=== PATIENT | female | born 1955 | race Caucasian/White ===

== ENCOUNTER 2019-09-30 18:41 | Observation (INO) | payer MEDICARE, OTHER ==
--- NOTE | 2019-09-30 19:12 | ED ---
ENT HPI - General Chief complaint: ENT Stated complaint: Nosebleed Time Seen by Provider: 09/30/19 18:49 Source: patient, EMS Mode of arrival: EMS Limitations: no limitations - History of Present Illness Initial comments: Patient is 64-year-old female presenting to emergency Department with a chief complaint of a nosebleed. Patient developed anterior epistaxis that was not able to resolve and went to the ED where she had a Rhino Rocket placed. Patient states she went today for removal of the epistaxis continued. The ED physician transfer the patient to [facility]. Patient states the bleeding is not resolved but she does have left-sided facial droopiness. Patient doesn't an appointment to see Dr. Dwyer tomorrow morning. Patient denies any headaches, one-sided weakness or paresthesias. Patient is currently on antiplatelet therapy. - Related Data Home Medications Medication Instructions Recorded Confirmed Carvedilol [Coreg] 3.125 mg PO BID 09/20/16 09/30/19 Cephalexin [Keflex] 500 mg PO DAILY 09/20/16 09/30/19 Isosorbide Mononitrate [Isosorbide 30 mg PO DAILY 09/20/16 09/30/19 Mononitrate ER] Nitroglycerin Sl Tabs [Nitrostat] 0.4 mg SUBLINGUAL Q5M PRN 09/20/16 09/30/19 Omeprazole 20 mg PO HS 09/20/16 09/30/19 Prasugrel [Effient] 10 mg PO DAILY 09/20/16 09/30/19 Simvastatin [Zocor] 20 mg PO HS 09/20/16 09/30/19 Solifenacin Succinate [Vesicare] 5 mg PO HS 09/20/16 09/30/19 metFORMIN HCL [Glucophage] 500 mg PO BID 09/20/16 09/30/19 Amoxicillin 500 mg PO TID 09/30/19 09/30/19 Aspirin EC [Ecotrin Low Dose] 162 mg PO HS 09/30/19 09/30/19 Cranberry Fruit Extract [Cranberry] 200 mg PO DAILY 09/30/19 09/30/19 Docusate [Colace] 100 mg PO DAILY 09/30/19 09/30/19 FLUoxetine HCL 40 mg PO DAILY 09/30/19 09/30/19 Midodrine [ProAmatine] 5 mg PO BID 09/30/19 09/30/19 guaiFENesin [Mucinex] 600 mg PO BID 09/30/19 09/30/19 sitaGLIPtin PHOSPHATE [Januvia] 50 mg PO DAILY 09/30/19 09/30/19 Allergies Allergy/AdvReac Type Severity Reaction Status Date / Time clindamycin Allergy Dyspnea Verified 09/30/19 20:48 Review of Systems ROS Statement: Those systems with pertinent positive or pertinent negative responses have been documented in the HPI. ROS Other: All systems not noted in ROS Statement are negative. Past Medical History Past Medical History: Chest Pain / Angina, Diabetes Mellitus, Hyperlipidemia, Hypertension, Myocardial Infarction ([place]), Thyroid Disorder Additional Past Medical History / Comment(s): autonomic dysfunction, neuropathy of head, orthostatic hypotension, IBS Last Myocardial Infarction Date:: 2015 History of Any Multi-Drug Resistant Organisms: None Reported Past Surgical History: Breast Surgery, Section, Cholecystectomy, Heart Catheterization With Stent, Hysterectomy, Tonsillectomy, Tubal Ligation Additional Past Surgical History / Comment(s): pannilectomy, breast biopsy, cataract removed bilateral Past Anesthesia/Blood Transfusion Reactions: No Reported Reaction Date of Last Stent Placement:: 2015 Past Psychological History: Anxiety, Depression Smoking Status: Former smoker Past Alcohol Use History: None Reported Past Drug Use History: None Reported - Past Family History Mother Family Medical History: Thyroid Disorder General Exam Limitations: no limitations General appearance: alert, in no apparent distress Head exam: Present: atraumatic, normocephalic, normal inspection Eye exam: Present: normal appearance, PERRL, EOMI Pupils: Present: normal accommodation ENT exam: Present: normal exam, normal oropharynx (Mother residual blood in the posterior pharynx.), mucous membranes moist, TM's normal bilaterally, normal external ear exam, other (Left-sided single lumen Rhino Rocket. No active bleeding at this time.) Neck exam: Present: normal inspection, full ROM Respiratory exam: Present: normal lung sounds bilaterally Cardiovascular Exam: Present: regular rate, normal rhythm, normal heart sounds Extremities exam: Present: normal inspection, full ROM Back exam: Present: normal inspection, full ROM Neurological exam: Present: alert, oriented X3, CN II-XII intact, normal gait, reflexes normal Psychiatric exam: Present: normal affect, normal mood Skin exam: Present: warm, dry, intact, normal color Course Vital Signs 09/30/19 09/30/19 18:43 19:39 Temperature 97.9 F Pulse Rate 95 86 Respiratory 18 18 Rate Blood Pressure 152/90 136/80 O2 Sat by Pulse 96 97 Oximetry Medical Decision Making - Medical Decision Making Patient is-year-old female presenting to the emergency department with a chief complaint of nose bleed. Patient was transferred [facility] ED from [facility] to [facility]. Dr. García spoke with Dr. Dwyer who will admit the patient for medical management. On exam patient does have some residual blood in the posterior pharynx. No active bleeding at this time. Patient is resting comfortably and has no complaints at this time. She has a single lumen Rhino Rocket in the left nostril. No FND. Admitting physician is . [facility] on consult. ENT on consult. - Lab Data Lab Results 09/30/19 Range/Units 20:36 POC Glucose (mg/dL) 278 H (75-99) mg/dL POC Glu Sld Educational Aide ID Mary Mayer Disposition Clinical Impression: Epistaxis Disposition: ADMITTED IP TO THIS HOSP Condition: Stable Additional Instructions: Patient will be admitted Is patient prescribed a controlled substance at d/c from ED?: No Referrals: Nonstaff,Physician [Primary Care Provider] - 1-2 days Time of Disposition: 21:05
[2019-09-30] MEDS ORDERED: NALOXONE 0.4 MG/ML 1 ML VIAL IV PRN (20:53)
[2019-09-30] MEDS ORDERED: ONDANSETRON 4 MG/2 ML VIAL IVP PRN (20:53)
[2019-09-30] MEDS ORDERED: ACETAMINOPHEN TAB 325 MG TAB PO PRN (20:53)
[2019-09-30] MEDS ORDERED: MORPHINE SULFATE 4 MG/ML SYRINGE IV PRN (20:53)
[2019-09-30] MEDS ORDERED: LORazepam 2 MG/ML INJ IV PRN (20:53)
[2019-09-30] MEDS ORDERED: HYDROmorphone 0.5 MG/0.5 ML SYRINGE IVP PRN (20:53)
[2019-09-30 20:56] LABS: Glucose,Whole Blood 278 mg/dL (75-99)
[2019-09-30 21:53] LABS: Anisocytosis Slight; Basophils % (A) 0 %; Eosinophils % (A) 0 %; HCT 35.9 % (34.0-46.0); HGB 11.6 gm/dL (11.4-16.0); Lymphocytes % (A) 6 %; MCH 29.3 pg (25.0-35.0); MCHC 32.3 g/dL (31.0-37.0); MCV 90.7 fL (80.0-100.0); Mean Platelet Volume 7.6; Monocytes # (A) 0.1 k/uL (0-1.0); Monocytes % (A) 1 %; Neutrophils % (A) 93 %; Platelet Count 267 k/uL (150-450); RBC 3.96 m/uL (3.80-5.40); RDW 17.6 % (11.5-15.5); WBC 17.3 k/uL (3.8-10.6)
[2019-09-30 21:59] LABS: ALT 28 U/L (4-34); AST 47 U/L (14-36); African American GFR (CKD) >90 (>60 ml/min/1.73 sqM); Albumin 4.4 g/dL (3.5-5.0); Alkaline Phosphatase 67 U/L (38-126); Anion Gap 14 mmol/L; Blood Urea Nitrogen 11 mg/dL (7-17); Calcium 9.5 mg/dL (8.4-10.2); Carbon Dioxide 20 mmol/L (22-30); Chloride 100 mmol/L (98-107); Glucose 264 mg/dL (74-99); Non-African American GFR(CKD) >90 (>60 ml/min/1.73 sqM); Sodium 134 mmol/L (137-145); Total Bilirubin 0.8 mg/dL (0.2-1.3); Total Protein 8.3 g/dL (6.3-8.2)
[2019-09-30 22:03] LABS: Potassium 5.5 mmol/L (3.5-5.1)
[2019-09-30 22:06] LABS: INR 0.9 (<1.2); Prothrombin Time 9.9 sec (9.0-12.0)
[2019-09-30 22:32] LABS: Partial Thromboplastin Time 21.1 sec (22.0-30.0)
[2019-10-01] MEDS ORDERED: NITROGLYCERIN SL TABS 0.4 MG TAB SUBLINGUAL PRN (00:01)
[2019-10-01] MEDS ORDERED: TROSPIUM CHLORIDE 20 MG TABLET PO SCH (00:30)
--- NOTE | 2019-10-01 01:09 | P.HPIM ---
History of Present Illness H&P Date: 09/30/19 Chief Complaint: nose bleed I was wearing N95 mask, face shield, and head cover. i maintained 6 feet distance with the patient who verbalized understanding about these precautionary measures. except for during my physical exam where i had to be close to the patient. This is 64-year-old female with coronary artery disease status post stents, diabetes mellitus on oral hypoglycemics well-controlled, hypertension controlled with medications. Patient comes in as a transfer for [facility] due to nosebleed patient reports frequent episodes of nose bleeding since August. Today she was going back to the hospital to remove her nasal packing however once it was removed she started bleeding again she was repacked with a Rhino Rocket's and was transferred to our facility for evaluation by ENT. Patient reports significant frequent bleeding since August to the point where her hemoglobin dropped to 8 required iron infusion she is not sure if she has received blood her hemoglobin at our facility was 11.6 the most recent hemogl obin that she had for a few days ago was 12 per her report. Currently patient denies any active bleeding into her throat. She denies any bleeding disorders however she recalls history of similar nosebleed about once 2 years ago. She denies any trauma to the nose denies any injuries. 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 ENT was notified recommended to leave the Rhino Rocket packing and patient will be evaluated in the morning close monitoring of her hemoglobin. Patient has been on antibiotics with amoxicillin. She otherwise denies any fevers or chills. Patient does report that she was having some left facial pain after packing over the weekend and then today she developed facial droop over the left side and inability to completely close her eyes and abscess of wrinkles over her left forehead. She recognizes the symptoms as Bajwa's palsy as her had it re cently. She denies otherwise any focal neuro deficits other than that. Denies any headache. She was given a dose of steroid prednisone at [facility] however she reports that she has not tolerated it in the past and refuses to take any more prednisone here. Upon further review of systems patient reported that she has lost sense of smell and taste over the past few days she thought this could be related to the nasal packing. Due to the current pandemic of Covid and that these complaints could be possible early symptoms. Covid will be taken into consideration. Patient otherwise denies any coughing chest pain or shortness of breath denies any fevers or chills denies any nausea or vomiting denies any diarrhea denies any muscle aches. She denies any contact with known Covid patient's. Patient is currently and oncology floor will be transferred to medical floor for close monitoring due to concerns regarding Covid Review of Systems Pertinent positives as noted in HPI. All other systems were reviewed and are negative Past Medical History Past Medical History: Chest Pain / Angina, Diabetes Mellitus, Hyperlipidemia, Hypertension, Myocardial Infarction ([place]), Thyroid Disorder Additional Past Medical History / Comment(s): autonomic dysfunction, neuropathy of head, orthostatic hypotension, IBS, [place] X3 Last Myocardial Infarction Date:: 2015 History of Any Multi-Drug Resistant Organisms: None Reported Past Surgical History: Breast Surgery, Section, Cholecystectomy, Heart Catheterization With Stent, Hysterectomy, Tonsillectomy, Tubal Ligation Additional Past Surgical History / Comment(s): pannilectomy, breast biopsy, cataract removed bilateral Past Anesthesia/Blood Transfusion Reactions: No Reported Reaction Date of Last Stent Placement:: 2015 Past Psychological History: Anxiety, Depression Additional Psychological History / Comment(s): Lives in own home in [place]. No stairs. Two cats. Patient does not have any assistive devices. Smoking Status: Former smoker Past Alcohol Use History: None Reported Past Drug Use History: None Reported - Past Family History Mother Family Medical History: Cancer, Diabetes Mellitus, Thyroid Disorder Additional Family Medical History / Comment(s): Kidney, bladder, thyroid cancer and heart disease, type 1 diabetic,issues with blood Medications and Allergies Home Medications Medication Instructions Recorded Confirmed Type Carvedilol [Coreg] 3.125 mg PO BID 09/20/16 09/30/19 History Cephalexin [Keflex] 500 mg PO DAILY 09/20/16 09/30/19 History Isosorbide Mononitrate [Isosorbide 30 mg PO DAILY 09/20/16 09/30/19 History Mononitrate ER] Nitroglycerin Sl Tabs [Nitrostat] 0.4 mg SUBLINGUAL Q5M PRN 09/20/16 09/30/19 History Omeprazole 20 mg PO HS 09/20/16 09/30/19 History Prasugrel [Effient] 10 mg PO DAILY 09/20/16 09/30/19 History Simvastatin [Zocor] 20 mg PO HS 09/20/16 09/30/19 History Solifenacin Succinate [Vesicare] 5 mg PO HS 09/20/16 09/30/19 History metFORMIN HCL [Glucophage] 500 mg PO BID 09/20/16 09/30/19 History Amoxicillin 500 mg PO TID 09/30/19 09/30/19 History Aspirin EC [Ecotrin Low Dose] 162 mg PO HS 09/30/19 09/30/19 History Cranberry Fruit Extract [Cranberry] 200 mg PO DAILY 09/30/19 09/30/19 History Docusate [Colace] 100 mg PO DAILY 09/30/19 09/30/19 History FLUoxetine HCL 40 mg PO DAILY 09/30/19 09/30/19 History Midodrine [ProAmatine] 5 mg PO BID 09/30/19 09/30/19 History guaiFENesin [Mucinex] 600 mg PO BID 09/30/19 09/30/19 History sitaGLIPtin PHOSPHATE [Januvia] 50 mg PO DAILY 09/30/19 09/30/19 History Allergies Allergy/AdvReac Type Severity Reaction Status Date / Time clindamycin Allergy Dyspnea Verified 09/30/19 20:48 Physical Exam Vitals: Vital Signs Temp Pulse Pulse Resp BP BP Pulse Ox 09/30/19 23:52 97.9 F 108 H 15 156/85 94 L 09/30/19 22:26 98.3 F 103 H 18 147/66 95 09/30/19 22:10 97.9 F 86 18 137/80 97 09/30/19 19:39 86 18 136/80 97 09/30/19 18:43 97.9 F 95 18 152/90 96 Intake and Output 09/30/19 09/30/19 10/01/19 14:59 22:59 06:59 Other: Weight 88.5 kg Constitutional: No acute distress, conversant, pleasant Eyes: Anicteric sclerae, moist conjunctiva, inability to close the left eye completely Pupils equal round reactive to light ENMT: NC/AT, left nostril packing Oropharynx clear, no erythema, no exudates, posterior nasopharyngeal streaking with blood Neck: Supple, FROM, no masses, or JVD No carotid bruits No thyromegaly Lungs: Clear to auscultation Clear to percussion Normal respiratory effort, no accessory muscle use Cardiovascular: Heart regular in rate and rhythm, No murmurs, gallops, or rubs No peripheral edema Abdominal: Soft Nontender, no guarding, rebound or rigidity Abdomen moving with respiration Normoactive bowel sounds No hepatomegaly, No splenomegaly No palpable mass No abdominal wall hernia noted Skin: Normal temperature, tone, texture, turgor No induration No subcutaneous nodules No rash, lesions No ulcers Extremities: No digital cyanosis No clubbing Pedal pulses intact and symmetrical Radial pulses intact and symmetrical No calf tenderness Psychiatric: Alert and oriented to person, place and time Appropriate affect fair judgement Neuro Muscles Strength 5/5 in all 4 extremities Sensation to light touch grossly present throughout Cranial nerves II-XII grossly intact No focal sensory deficits Lymphatics: no palpable cervical or supraclavicular , or inguinal lymph nodes Results CBC & Chem 7: 09/30/19 21:00 09/30/19 21:00 Labs: Abnormal Lab Results - Last 24 Hours (Table) 09/30/19 09/30/19 09/30/19 Range/Units 20:36 21:00 21:00 WBC 17.3 H (3.8-10.6) k/uL RDW 17.6 H (11.5-15.5) % Neutrophils # 16.0 H (1.3-7.7) k/uL APTT 21.1 L (22.0-30.0) sec Sodium (137-145) mmol/L Potassium (3.5-5.1) mmol/L Carbon Dioxide (22-30) mmol/L Creatinine (0.52-1.04) mg/dL Glucose (74-99) mg/dL POC Glucose (mg/dL) 278 H (75-99) mg/dL AST (14-36) U/L Total Protein (6.3-8.2) g/dL 09/30/19 Range/Units 21:00 WBC (3.8-10.6) k/uL RDW (11.5-15.5) % Neutrophils # (1.3-7.7) k/uL APTT (22.0-30.0) sec Sodium 134 L (137-145) mmol/L Potassium 5.5 H (3.5-5.1) mmol/L Carbon Dioxide 20 L (22-30) mmol/L Creatinine 0.48 L (0.52-1.04) mg/dL Glucose 264 H (74-99) mg/dL POC Glucose (mg/dL) (75-99) mg/dL AST 47 H (14-36) U/L Total Protein 8.3 H (6.3-8.2) g/dL Thrombosis Risk Factor Assmnt - Choose All That Apply Each Factor Represents 1 point: Obesity (BMI >25) Each Risk Factor Represents 2 Points: Age 61-74 years Other congenital or acquired thrombophilia - If yes, enter type in comment: No Thrombosis Risk Factor Assessment Total Risk Factor Score: 3 Thrombosis Risk Factor Assessment Level: Moderate Risk Assessment and Plan Assessment: 64-year-old female with hypertension well-controlled, diabetes mellitus A1c 6.3 well-controlled with oral hypoglycemics, CAD status post stents 5 years ago since then she's been on Effient and aspirin. Patient transferred from [facility] discharge facility for ENT evaluation due to recurrent significant nasal bleed. Patient required iron infusion last week which brought her hemoglobin up from 8-->12 patient is not sure if she has received blood transfusion Patient reported three-day history of loss of smell and taste sensation due to the current pandemic of Covid patient will be transferred from her current oncology floor to regular medical floor for monitoring and isolation. Patient will be tested for Covid and influenza Anticipated length of stay less than 2 midnights Plan: epistaxis Mild anemia secondary to nasal bleed Suspected Covera due to reports of loss of smell and taste sensation [place] palsy Hypertension Diabetes mellitus well controlled with A1c 6.3 CAD status post stents Plan Nasal packing with Rhino rocket Prophylaxis with amoxicillin Monitor hemoglobin Hold aspirin and effient (last stent 5 years ago) Patient refuses to take prednisone due to intolerance in the past she received 1 dose at [facility] Continue with valacyclovir thousand milligrams 3 times a day for bells palsy Contact and droplet precautions Covera testing Influenza testing Check chest x-ray Supplemental oxygen target dose at more than 92% Insulin sliding scale hold oral hypoglycemic agents CODE STATUS:*Full code DVT prophylaxis: Mechanical secondary to nasal bleed Discussed with: Patient, ER, RN Anticipated length of stay less than [address]: Home A total of 60 minutes was spent on the care of this complex patient more than 50% of the time was spent in counseling and care coordination.
[2019-10-01] MEDS: valACYclovir HCL 1,000 MG TABLET PO SCH ×2 (01:27→08:05)
[2019-10-01] MEDS: CARVEDILOL 3.125 MG TAB PO SCH ×2 (01:27→08:05)
[2019-10-01 04:05] VITALS: TEMP 98.2
[2019-10-01 05:28] LABS: Anisocytosis Slight; Basophils % (A) 0 %; Eosinophils % (A) 0 %; HCT 34.4 % (34.0-46.0); Hypochromasia Slight; Lymphocytes # (A) 2.3 k/uL (1.0-4.8); Lymphocytes % (A) 14 %; MCH 29.6 pg (25.0-35.0); MCHC 31.9 g/dL (31.0-37.0); MCV 92.8 fL (80.0-100.0); Mean Platelet Volume 7.4; Monocytes # (A) 0.9 k/uL (0-1.0); Monocytes % (A) 6 %; Neutrophils % (A) 78 %; Platelet Count 261 k/uL (150-450); RBC 3.71 m/uL (3.80-5.40); RDW 16.9 % (11.5-15.5); WBC 16.6 k/uL (3.8-10.6)
--- NOTE | 2019-10-01 07:09 | XR ---
EXAMINATION TYPE: XR chest 2V DATE OF EXAM: 10/01/2019 COMPARISON: 12/26/2009 HISTORY: 64-year-old female, with, cough, congestion, fever TECHNIQUE: PA and lateral views FINDINGS: The cardiomediastinal silhouette, aorta, and pulmonary vasculature are within normal limits. Mild int erstitial prominence as a chronic appearance. No consolidation or pleural effusion. IMPRESSION: Chronic appearing changes. No focal infiltrates seen.
[2019-10-01 07:14] LABS: Glucose,Whole Blood 174 mg/dL (75-99)
[2019-10-01] MEDS: INSULIN ASPART (NovoLOG) 100 UNIT/ML VIAL SQ SCH ×2 (08:04→12:07)
[2019-10-01 08:05] VITALS: PULSE 86; RESP 18
[2019-10-01 08:06] VITALS: BP 144/69
[2019-10-01] MEDS ORDERED: ISOSORBIDE MONONITRATE ER 30 MG TAB.ER.24H PO SCH (09:00)
[2019-10-01] MEDS ORDERED: MIDODRINE 5 MG TAB PO SCH (09:00)
[2019-10-01] MEDS ORDERED: AMOXICILLIN 500 MG CAP PO SCH (09:00)
[2019-10-01] MEDS ORDERED: FLUoxetine HCL 20 MG CAP PO SCH (09:00)
[2019-10-01] MEDS ORDERED: PRASUGREL 10 MG TAB PO SCH (09:00)
[2019-10-01] MEDS ORDERED: DOCUSATE 100 MG CAP PO SCH (09:00)
--- NOTE | 2019-10-01 11:28 | P.CRDCN ---
History of Present Illness History of present illness: HISTORY OF PRESENTING ILLNESS This is a pleasant 64-year-old female past medical history significant for coronary artery disease status post revascularization 3 most recently in 2 015, diabetes mellitus, hypertension, orthostatic changes maintained on midodrine and dyslipidemia. She follows in the office with a alterations workroom clerk in [place]. We have been asked to see in consultation for nose bleed on dual anti- platelet therapy. She states she has been struggling with this nose bleed for the last 5 days. She has nasal packing in place in the left nare. No active bleeding at this time. She denies chest pain, shortness of breath, dizziness or palpitations. DIAGNOSTICS No EKG obtained on admission. Chest xray negative for acute cardiopulmonary process, consolidation or pleural effusion. Laboratory reviewed, WBC 16.6, hemoglobin 11, platelets 261, sodium 134, potassium 5.5, creatinine 0.48, influenza A and B not detected, Covid 19 pending. Current cardiac medications include Coreg 3.125 mg twice a day, midodrine 5 mg twice a day, simvastatin 20 mg daily, aspirin 162 mg at bedtime, Imdur 30 mg daily and Effient 10 mg daily. REVIEW OF SYSTEMS At the time of my exam: CONSTITUTIONAL: Denies fever or chills. CARDIOVASCULAR: Denies chest pain, shortness of breath, orthopnea, PND or palpitations. RESPIRATORY: Denies cough. GASTROINTESTINAL: Denies abdominal pain, diarrhea, constipation, nausea or vomiting. MUSCULOSKELETAL: Denies myalgias. NEUROLOGIC: Denies numbness, tingling or weakness. ENDOCRINE: Denies fatigue, weight change, polydipsia or polyurina. GENITOURINARY: Denies burning, hematuria or urgency with micturation. HEMATOLOGIC: Denies history of anemia or bleeding. PHYSICAL EXAMINATION Blood pressure 144/69 heart rate 86 afebrile and maintaining oxygen saturation on room air. CONSTITUTIONAL: No apparent distress. HEENT: Head is normocephalic. Pupils are equal, round. Sclerae anicteric. Mucous membranes of the mouth are moist. No JVD. No carotid bruit. Nasal packing in place to the left nare. CHEST EXAMINATION: Lungs are clear to auscultation. No chest wall tenderness is noted on palpation or with deep breathing. HEART EXAMINATION: Regular rate and rhythm. S1, S2 heard. No murmurs, gallops or rub. ABDOMEN: Soft, nontender. Positive bowel sounds. EXTREMITIES: 2+ peripheral pulses, no lower extremity edema and no calf tenderness. NEUROLOGIC EXAMINATION: Patient is awake, alert and oriented x3. ASSESSMENT Epistaxix on effient and aspirin Coronary artery disease s/p revascularization, most recently in 2014. Hypertension Dyslipidemia Former nicotine dependence, quite 6 yrs ago Obesity, BMI 32 PLAN Recommend complete cessation of effient as her last PCI was in 2014 she is outside the 1-year window of use. Continue aspirin 81 mg daily only. Clinically stable from a cardiac perspective. Follow up with her primary alterations workroom clerk upon discharge. Thank you kindly for this consultation. Nurse Practitioner note has been reviewed, I agree with a documented findings and plan of care. Patient was seen and examined. Past Medical History Past Medical History: Chest Pain / Angina, Diabetes Mellitus, Hyperlipidemia, Hypertension, Myocardial Infarction ([place]), Thyroid Disorder Additional Past Medical History / Comment(s): autonomic dysfunction, neuropathy of head, orthostatic hypotension, IBS, [place] X3 Last Myocardial Infarction Date:: 2015 History of Any Multi-Drug Resistant Organisms: None Reported Past Surgical History: Breast Surgery, Section, Cholecystectomy, Heart Catheterization With Stent, Hysterectomy, Tonsillectomy, Tubal Ligation Additional Past Surgical History / Comment(s): pannilectomy, breast biopsy, cataract removed bilateral Past Anesthesia/Blood Transfusion Reactions: No Reported Reaction Date of Last Stent Placement:: 2015 Past Psychological History: Anxiety, Depression Additional Psychological History / Comment(s): Lives in own home in [place]. No stairs. Two cats. Patient does not have any assistive devices. Smoking Status: Former smoker Past Alcohol Use History: None Reported Past Drug Use History: None Reported - Past Family History Mother Family Medical History: Cancer, Diabetes Mellitus, Thyroid Disorder Additional Family Medical History / Comment(s): Kidney, bladder, thyroid cancer and heart disease, type 1 diabetic,issues with blood Medications and Allergies Home Medications Medication Instructions Recorded Confirmed Type Carvedilol [Coreg] 3.125 mg PO BID 09/20/16 09/30/19 History Isosorbide Mononitrate [Isosorbide 30 mg PO DAILY 09/20/16 09/30/19 History Mononitrate ER] Nitroglycerin Sl Tabs [Nitrostat] 0.4 mg SUBLINGUAL Q5M PRN 09/20/16 09/30/19 History Omeprazole 20 mg PO HS 09/20/16 09/30/19 History Prasugrel [Effient] 10 mg PO DAILY 09/20/16 09/30/19 History Simvastatin [Zocor] 20 mg PO HS 09/20/16 09/30/19 History Solifenacin Succinate [Vesicare] 5 mg PO HS 09/20/16 09/30/19 History metFORMIN HCL [Glucophage] 500 mg PO BID 09/20/16 09/30/19 History Amoxicillin 500 mg PO TID 09/30/19 09/30/19 History Aspirin EC [Ecotrin Low Dose] 162 mg PO HS 09/30/19 09/30/19 History Cranberry Fruit Extract [Cranberry] 200 mg PO DAILY 09/30/19 09/30/19 History Docusate [Colace] 100 mg PO DAILY 09/30/19 09/30/19 History FLUoxetine HCL 40 mg PO DAILY 09/30/19 09/30/19 History Midodrine [ProAmatine] 5 mg PO BID 09/30/19 09/30/19 History guaiFENesin [Mucinex] 600 mg PO BID 09/30/19 09/30/19 History sitaGLIPtin PHOSPHATE [Januvia] 50 mg PO DAILY 09/30/19 09/30/19 History Allergies Allergy/AdvReac Type Severity Reaction Status Date / Time clindamycin Allergy Dyspnea Verified 09/30/19 20:48 Physical Exam Vitals: Vital Signs Temp Pulse Pulse Resp BP BP Pulse Ox 10/01/19 07:00 98.2 F 86 18 144/69 98 10/01/19 03:00 98.2 F 92 14 120/79 93 L 09/30/19 23:52 97.9 F 108 H 15 156/85 94 L 09/30/19 22:26 98.3 F 103 H 18 147/66 95 09/30/19 22:10 97.9 F 86 18 137/80 97 09/30/19 19:39 86 18 136/80 97 09/30/19 18:43 97.9 F 95 18 152/90 96 Intake and Output 09/30/19 10/01/19 10/01/19 22:59 06:59 14:59 Other: Voiding Method Toilet Weight 88.5 kg Results 10/01/19 04:14 09/30/19 21:00 Cardiac Enzymes 09/30/19 Range/Units 21:00 AST 47 H (14-36) U/L Coagulation 09/30/19 Range/Units 21:00 PT 9.9 (9.0-12.0) sec APTT 21.1 L (22.0-30.0) sec CBC 09/30/19 10/01/19 Range/Units 21:00 04:14 WBC 17.3 H 16.6 H (3.8-10.6) k/uL RBC 3.96 3.71 L (3.80-5.40) m/uL Hgb 11.6 11.0 L (11.4-16.0) gm/dL Hct 35.9 34.4 (34.0-46.0) % Plt Count 267 261 (150-450) k/uL Comprehensive Metabolic Panel 09/30/19 Range/Units 21:00 Sodium 134 L (137-145) mmol/L Potassium 5.5 H (3.5-5.1) mmol/L Chloride 100 (98-107) mmol/L Carbon Dioxide 20 L (22-30) mmol/L BUN 11 (7-17) mg/dL Creatinine 0.48 L (0.52-1.04) mg/dL Glucose 264 H (74-99) mg/dL Calcium 9.5 (8.4-10.2) mg/dL AST 47 H (14-36) U/L ALT 28 (4-34) U/L Alkaline Phosphatase 67 (38-126) U/L Total Protein 8.3 H (6.3-8.2) g/dL Albumin 4.4 (3.5-5.0) g/dL Current Medications Generic Name Dose Route Start Last Admin Trade Name Freq PRN Reason Stop Dose Admin Acetaminophen 650 mg 09/30/19 20:53 Tylenol Tab PO Q6HR PRN Mild Pain or Fever > 100.5 Amoxicillin 500 mg 10/01/19 09:00 10/01/19 08:05 Amoxicillin PO 500 mg TID [facility] Administration Atorvastatin Calcium 10 mg 10/01/19 21:00 Lipitor PO HS [facility] Carvedilol 3.125 mg 10/01/19 00:30 10/01/19 08:05 Coreg PO 3.125 mg BID-W/MEALS [facility] Administration Docusate Sodium 100 mg 10/01/19 09:00 10/01/19 08:05 Colace PO 100 mg DAILY [facility] Administration Fluoxetine HCl 40 mg 10/01/19 09:00 10/01/19 08:05 Prozac PO 40 mg DAILY [facility] Administration Hydromorphone HCl 0.5 mg 09/30/19 20:53 Dilaudid IVP Q3HR PRN Moderate Pain Insulin Aspart 0 unit 10/01/19 07:30 10/01/19 08:04 Novolog SQ 4 unit ACHS [facility]E Administration Protocol Isosorbide Mononitrate 30 mg 10/01/19 09:00 10/01/19 08:05 Imdur PO 30 mg DAILY [facility] Administration Lorazepam 0.5 mg 09/30/19 20:53 10/01/19 03:05 Ativan IV 0.5 mg Q6HR PRN Administration Anxiety Midodrine 5 mg 10/01/19 09:00 10/01/19 08:05 Proamatine PO 5 mg BID@0900,1700 [facility] Administration Morphine Sulfate 4 mg 09/30/19 20:53 Morphine Sulfate (Inj) IV Q4HR PRN Severe Pain Naloxone HCl 0.2 mg 09/30/19 20:53 Narcan IV Q2M PRN Opioid Reversal Nitroglycerin 0.4 mg 10/01/19 00:01 Nitrostat SUBLINGUAL Q5M PRN Chest Pain Ondansetron HCl 4 mg 09/30/19 20:53 Zofran IVP Q8HR PRN Nausea And Vomiting Pantoprazole Sodium 40 mg 10/01/19 21:00 Protonix PO HS [facility] Trospium 20 mg 10/01/19 00:30 10/01/19 01:27 Sanctura PO 20 mg HS [facility]E Administration Valacyclovir HCl 1,000 mg 10/01/19 00:30 10/01/19 08:05 Valtrex PO 1,000 mg TID [facility] Administration Intake and Output 09/30/19 10/01/19 10/01/19 22:59 06:59 14:59 Other: Voiding Method Toilet Weight 88.5 kg 10/01/19 04:14 09/30/19 21:00
[2019-10-01] MEDS ORDERED: ASPIRIN 81 MG PO SCH (11:30)
[2019-10-01 11:59] LABS: Glucose,Whole Blood 179 mg/dL (75-99)
--- NOTE | 2019-10-01 12:05 | P.DS ---
Providers Date of admission: 09/30/19 20:51 Expected date of discharge: 10/01/19 Attending physician: Mart Clements MD Consults: 09/30/19 20:53 Consult Physician Stat Consulting Provider: Daniel Cain Consult Reason/Comments: Posterior epistaxis Do you want consulting provider notified?: Yes 10/01/19 00:04 Consult Physician Routine Consulting Provider: Ashok Pisano Consult Reason/Comments: Posterior epitaxis Do you want consulting provider notified?: Yes, Notify in am Primary care physician: Physician Nonstaff Hospital Course: Discharge diagnosis Epistaxis Mild acute blood loss anemia Low suspicion for Covid 19 Essential hypertension Type 2 diabetes CAD with stents Bajwa palsy ruled out Hospital course The patient is a 64-year-old female with a history of CAD with stenting 2014 , essential hypertension and type 2 diabetes that was admitted with epistaxis after being transferred here from [place] after having a left nasal Rhino Rocket placed due to epistaxis the patient gave a history of requiring iron infusions due to anemia secondary to her nosebleeds. The patient had complained of symptoms of Bajwa's palsy and was started empirically on steroids and antivirals these were subsequently discontinued after the patient was invalid by ENT and found to have low suspicion of Bajwa's palsy or CVA at this time. The patient was seen by cardiology and was discontinued off Effient at the patient had been outside the 1 year window for which it was indicated she was instructed to continued on aspirin and follow-up with ENT Dr. Cain in clinic on Sunday. Covid 19 had been sent to the lab and results are pending. The patient was discharged home and instructed to continue her amoxicillin for prophylaxis and to keep her left Rhino Rocket in place and to follow up with ENT on Sunday. This discharge process spoke approximately 35 minutes. Focused exam ENMT left Rhino Rocket in place, for further exam details please see ENT consultation Patient Condition at Discharge: Stable Plan - Discharge Summary Discharge Rx Participant: No New Discharge Prescriptions: New Aspirin 81 mg PO DAILY chew Continue Simvastatin [Zocor] 20 mg PO HS metFORMIN HCL [Glucophage] 500 mg PO BID Omeprazole 20 mg PO HS Isosorbide Mononitrate [Isosorbide Mononitrate ER] 30 mg PO DAILY Carvedilol [Coreg] 3.125 mg PO BID Solifenacin Succinate [Vesicare] 5 mg PO HS Nitroglycerin Sl Tabs [Nitrostat] 0.4 mg SUBLINGUAL Q5M PRN PRN Reason: Chest Pain Docusate [Colace] 100 mg PO DAILY Cranberry Fruit Extract [Cranberry] 200 mg PO DAILY sitaGLIPtin PHOSPHATE [Januvia] 50 mg PO DAILY Midodrine [ProAmatine] 5 mg PO BID guaiFENesin [Mucinex] 600 mg PO BID FLUoxetine HCL 40 mg PO DAILY Amoxicillin 500 mg PO TID Discontinued Cephalexin [Keflex] 500 mg PO DAILY Prasugrel [Effient] 10 mg PO DAILY Aspirin EC [Ecotrin Low Dose] 162 mg PO HS Discharge Medication List Carvedilol [Coreg] 3.125 mg PO BID 09/20/16 [History] Isosorbide Mononitrate [Isosorbide Mononitrate ER] 30 mg PO DAILY 09/20/16 [History] Nitroglycerin Sl Tabs [Nitrostat] 0.4 mg SUBLINGUAL Q5M PRN 09/20/16 [History] Omeprazole 20 mg PO HS 09/20/16 [History] Simvastatin [Zocor] 20 mg PO HS 09/20/16 [History] Solifenacin Succinate [Vesicare] 5 mg PO HS 09/20/16 [History] metFORMIN HCL [Glucophage] 500 mg PO BID 09/20/16 [History] Amoxicillin 500 mg PO TID 09/30/19 [History] Cranberry Fruit Extract [Cranberry] 200 mg PO DAILY 09/30/19 [History] Docusate [Colace] 100 mg PO DAILY 09/30/19 [History] FLUoxetine HCL 40 mg PO DAILY 09/30/19 [History] Midodrine [ProAmatine] 5 mg PO BID 09/30/19 [History] guaiFENesin [Mucinex] 600 mg PO BID 09/30/19 [History] sitaGLIPtin PHOSPHATE [Januvia] 50 mg PO DAILY 09/30/19 [History] Aspirin 81 mg PO DAILY chew 10/01/19 [Rx] Follow up Appointment(s)/Referral(s): Daniel Cain DO [Doctor of Osteopathic Medicine] - 10/06/19 12:45 pm Nonstaff,Physician [Primary Care Provider] - 1-2 Days Activity/Diet/Wound Care/Special Instructions: Patient will be admitted Discharge Disposition: HOME SELF-CARE
--- NOTE | 2019-10-01 12:28 | CONS ---
CONSULTATION DATE OF SERVICE: 10/01/2019 CHIEF COMPLAINT: Nose bleed. HISTORY OF PRESENT ILLNESS: This is a 64-year-old white female who has had recurring nosebleeds over the last month. She had a pretty brisk bleed on Sunday and had a nasal pack placed. She had an appointment to come in today at 10 am to have her pack removed, but she decided to go to the emergency room at [place] [facility] and they removed her pack last evening. She had a brisk bleed and they were unable to control the bleeding and was transferred down to [facility], Dr. Alexandre Parker was motion study technician, but they elected to call me for consultation and care of this patient. I did wear a 95 mask facial head covered during my examination and visit with the patient. The patient tells me that she has been on a blood thinner for over 5 years for a stent that was placed in 2014. She also has a diagnosis of Bajwa's palsy and because of her anosmia, she was tested for the krishnamurthy virus for suspected COVID-19, but the patient has a nasal pack in place. I understand that the emergency room here placed a nasal pack utilizing a rhino rocket and inflation and she currently has had no bleeding. She was seen by Cardiology today and they advised her to stop her blood thinner, which was for her stent placed in 2014 and felt that it was no longer needed. She did have anemia issue and is currently being evaluated by Medicine. She has left nasal packing and taping to the lip. She has good facial movement other than limited lip movement but that is from the tape on her lip. PAST MEDICAL HISTORY: Positive for heart disease, chest pain, angina, diabetes, hyperlipidemia, hypertension, thyroid dysfunction. PAST SURGICAL HISTORY: Positive for stent, panniculectomy, breast biopsy, cataract removal. SOCIAL HISTORY: Former smoker. Denies current smoking or alcohol consumption. FAMILY HISTORY: Positive for cancer, diabetes, thyroid disorder. CURRENT MEDICATIONS ARE: Coreg, Keflex, isosorbide dinitrate, nitroglycerin, omeprazole, Atrovent, Zocor, VESIcare, metformin, amoxicillin, aspirin, cranberry fruit extract, Colace, Mucinex, Januvia. ALLERGIES: To CLINDAMYCIN. REVIEW OF SYSTEMS: See H and P. PHYSICAL EXAMINATION: Vital signs are stable. Patient afebrile. HEAD: Normocephalic. Face is symmetric. There is tenderness of the left maxillary sinus. Nose shows a left nasal packing in place utilizing a rhino rocket. No bleeding is seen. The balloon is taped to the left upper lip, which is limited movement because of the taping. Forehead movement, rest of the facial movements normal. Ears are unremarkable. Mouth and throat and no oral lesions are seen. Neck is unremarkable. No bleeding is seen. Neck, no tumors or masses. Oral exam is unremarkable. IMPRESSION: Acute left-sided posterior epistaxis secondary to anticoagulant therapy. PLAN OF TREATMENT: This patient has no evidence of Bajwa's palsy. She has limited left upper lip movement because it is taped to the nasal balloon. She has no evidence of krishnamurthy virus. She has no fever. She has no coughing, shortness of breath, etc. Since she can stop her blood thinner, I think she is an excellent candidate to have the balloon removed on Sunday and I think the patient should do quite well once stopped from her blood thinner. I will be seeing the patient on Sunday for balloon removal. The patient is to call us if any problems arise in the interim. I anticipate she may be discharged today. They are awaiting the results of her krishnamurthy virus testing. This was discussed with Dr. Ybarra and the patient in detail and again I see no evidence of Bajwa's palsy. Her anosmia is from her nasal balloon and that was the reason for the krishnamurthy virus test in the first place. I guess she is not running a fever. She will stay on antibiotics until the pack has been removed/ Again she is to call if any problems arise in the interim. MMODL / IJN: [id number] /
[2019-10-01] MEDS ORDERED: ATORVASTATIN 10 MG TAB PO SCH (21:00)
[2019-10-01] MEDS ORDERED: PANTOPRAZOLE 40 MG TABLET PO SCH (21:00)
== END 2019-10-01 13:12 | disposition home or self-care (01) ==
LOC: EC 18:41 → 5NMEDONC 20:51 → 4SSUR 23:31
PROVIDERS: ADMIT Internal Medicine; ATTEND Internal Medicine
DX: R04.0 Epistaxis (principal); D62 Acute posthemorrhagic anemia; D72.829 Elevated white blood cell count, unspecified; E11.65 Type 2 diabetes mellitus with hyperglycemia; E66.9 Obesity, unspecified; E78.5 Hyperlipidemia, unspecified; F32.9 Major depressive disorder, single episode, unspecified; F41.9 Anxiety disorder, unspecified; I10 Essential (primary) hypertension; I25.10 Atherosclerotic heart disease of native coronary artery without angina pectoris; I25.2 Old myocardial infarction; T38.0X5A Adverse effect of glucocorticoids and synthetic analogues, initial encounter; Z68.32 Body mass index [BMI] 32.0-32.9, adult; Z79.02 Long term (current) use of antithrombotics/antiplatelets; Z79.82 Long term (current) use of aspirin; Z79.84 Long term (current) use of oral hypoglycemic drugs; Z79.899 Other long term (current) drug therapy; Z80.8 Family history of malignant neoplasm of other organs or systems; Z83.3 Family history of diabetes mellitus; Z87.891 Personal history of nicotine dependence; Z90.710 Acquired absence of both cervix and uterus; Z95.5 Presence of coronary angioplasty implant and graft; Z88.1 Allergy status to other antibiotic agents; E11.40 Type 2 diabetes mellitus with diabetic neuropathy, unspecified; G90.9 Disorder of the autonomic nervous system, unspecified; Z84.89 Family history of other specified conditions; Z98.49 Cataract extraction status, unspecified eye; Z11.59 Encounter for screening for other viral diseases
CPT/HCPCS: 96374; 99284; 36415; 80053; 85025 ×2; 85610; 85730; 87502; 71046; G0378 ×2; U0002; J2060

== ENCOUNTER 2023-04-13 11:26 | Emergency (ER) | payer MEDICARE ==
[2023-04-13] MEDS ORDERED: HYDROcodone/APAP 5-325MG 1 EACH TAB PO STA (12:26)
--- NOTE | 2023-04-13 12:29 | XR ---
EXAMINATION TYPE: XR Hip LT and AP Pelvis DATE OF EXAM: 04/13/2023 CLINICAL HISTORY: pain TECHNIQUE: Single view the pelvis is submitted. 2 views of the left hip are also submitted. FINDINGS: No evidence for fracture, dislocation or bony lesion. Joint spaces are well-preserved. S I joints appear symmetric. IMPRESSION: 1. No acute fracture or dislocation seen. ICD 10 NO FRACTURE, INITIAL EVALUATION
--- NOTE | 2023-04-13 13:57 | CT ---
EXAMINATION TYPE: CT hip LT wo con DATE OF EXAM: 04/13/2023 COMPARISON: None HISTORY: left hip pain CT DLP: 603.2 mGycm Automated exposure control for dose reduction was used. FINDINGS: There is a moderately displaced fracture of the greater trochanter of the left femur. There is no dislocation of hip joint no significant degenerative change within the hip joint. Visuali zed left hemipelvis is intact. Soft tissues are unremarkable. IMPRESSION: Mildly displaced fracture of the greater trochanter of the left hip.
--- NOTE | 2023-04-13 14:29 | ED ---
Fall HPI - General Chief Complaint: Fall Stated Complaint: HIP PAIN/FALL Time Seen by Provider: 04/13/23 11:37 Source: patient, EMS, RN notes reviewed Mode of arrival: EMS Limitations: no limitations - History of Present Illness Initial Comments: 68-year-old female sent emergency department with chief complaint of left hip pain. Patient states she had a trip and fall. Patient denies any head injury states child has left outer hip, leg pain. Denies back pain. - Related Data Home Medications Medication Instructions Recorded Confirmed Isosorbide Mononitrate [Isosorbide 30 mg PO DAILY 09/20/16 09/30/19 Mononitrate ER] Nitroglycerin Sl Tabs [Nitrostat] 0.4 mg SUBLINGUAL Q5M PRN 09/20/16 09/30/19 Omeprazole 20 mg PO HS 09/20/16 09/30/19 Simvastatin [Zocor] 20 mg PO HS 09/20/16 09/30/19 Solifenacin Succinate [Vesicare] 5 mg PO HS 09/20/16 09/30/19 carvediloL [Coreg] 3.125 mg PO BID 09/20/16 09/30/19 metFORMIN HCL [Glucophage] 500 mg PO BID 09/20/16 09/30/19 Amoxicillin 500 mg PO TID 09/30/19 09/30/19 Cranberry Fruit Extract [Cranberry] 200 mg PO DAILY 09/30/19 09/30/19 Docusate [Colace] 100 mg PO DAILY 09/30/19 09/30/19 FLUoxetine HCL 40 mg PO DAILY 09/30/19 09/30/19 Midodrine [ProAmatine] 5 mg PO BID 09/30/19 09/30/19 guaiFENesin [Mucinex] 600 mg PO BID 09/30/19 09/30/19 sitaGLIPtin PHOSPHATE [Januvia] 50 mg PO DAILY 09/30/19 09/30/19 Previous Rx's Medication Instructions Recorded Aspirin 81 mg PO DAILY chew 10/01/19 HYDROcodone/APAP 7.5-325MG [[place] 1 tab PO Q6HR PRN 3 Days #12 tab 04/13/23 7.5-325] Allergies Allergy/AdvReac Type Severity Reaction Status Date / Time clindamycin Allergy Dyspnea Verified 09/30/19 20:48 Sulfa (Sulfonamide AdvReac Unknown Verified 04/13/23 11:35 Antibiotics) Review of Systems ROS Statement: Those systems with pertinent positive or pertinent negative responses have been documented in the HPI. ROS Other: All systems not noted in ROS Statement are negative. Past Medical History Past Medical History: Chest Pain / Angina, Diabetes Mellitus, Hyperlipidemia, Hypertension, Myocardial Infarction (LA), Thyroid Disorder Additional Past Medical History / Comment(s): autonomic dysfunction, neuropathy of head, orthostatic hypotension, IBS, LA X3 Last Myocardial Infarction Date:: 2015 History of Any Multi-Drug Resistant Organisms: None Reported Past Surgical History: Breast Surgery, Section, Cholecystectomy, Heart Catheterization With Stent, Hysterectomy, Tonsillectomy, Tubal Ligation Additional Past Surgical History / Comment(s): pannilectomy, breast biopsy, cataract removed bilateral Past Anesthesia/Blood Transfusion Reactions: No Reported Reaction Date of Last Stent Placement:: 2015 Past Psychological History: Anxiety, Depression Smoking Status: Former smoker Past Alcohol Use History: Occasional Past Drug Use History: None Reported - Past Family History Mother Family Medical History: Cancer, Diabetes Mellitus, Thyroid Disorder Additional Family Medical History / Comment(s): Kidney, bladder, thyroid cancer and heart disease, type 1 diabetic,issues with blood General Exam Limitations: no limitations General appearance: alert, in no apparent distress Head exam: Present: atraumatic, normocephalic, normal inspection Eye exam: Present: normal appearance, PERRL, EOMI. Absent: scleral icterus, conjunctival injection, periorbital swelling Neck exam: Present: normal inspection, full ROM. Absent: tenderness, meningismus, lymphadenopathy Respiratory exam: Present: normal lung sounds bilaterally. Absent: respiratory distress, wheezes, rales, rhonchi, stridor Cardiovascular Exam: Present: regular rate, normal rhythm, normal heart sounds. Absent: systolic murmur, diastolic murmur, rubs, gallop, clicks GI/Abdominal exam: Present: soft, normal bowel sounds. Absent: distended, tenderness, guarding, rebound, rigid Extremities exam: Present: other (Tenderness to left hip, neurovascular intact, pain with logrolling.) Course Vital Signs 04/13/23 04/13/23 04/13/23 11:30 12:35 14:42 Temperature 98.1 F 98.4 F Pulse Rate 66 60 72 Respiratory 18 20 18 Rate Blood Pressure 125/72 137/68 136/77 O2 Sat by Pulse 97 97 97 Oximetry Medical Decision Making - Medical Decision Making Was pt. sent in by a medical professional or institution (VIOLA Mason, PSYCHOLOGICAL ANTHROPOLOGIST, urgent care, hospital, or long-term...) When possible be specific @ -No Did you speak to anyone other than the patient for history (EMS, parent, family, police, friend...)? What history was obtained from this source @ -No Did you review nursing and triage notes (agree or disagree)? Why? @ -I reviewed and agree with nursing and triage notes Were old charts reviewed (outside hosp., previous admission, EMS record, old EKG , old radiological studies, urgent care reports/EKG's, long-term records)? Report findings @ -No old charts were reviewed Differential Diagnosis (chest pain, altered mental status, abdominal pain women, abdominal pain men, vaginal bleeding, weakness, fever, dyspnea, syncope, headache, dizziness, GI bleed, back pain, seizure, CVA, palpatations, mental health, musculoskeletal)? @ -Fall, left hip contusion, left hip fracture EKG interpreted by me (3pts min.). @ -None X-rays interpreted by me (1pt min.). @ -X-ray does not show definite fracture left hip CT interpreted by me (1pt min.). @ -CT showing left greater trochanter fracture U/S interpreted by me (1pt. min.). @ -None done What testing was considered but not performed or refused? (CT, X-rays, U/S, labs)? Why? @ -None What meds were considered but not given or refused? Why? @ -None Did you discuss the management of the patient with other professionals (professionals i.e. VIOLA Mason, PSYCHOLOGICAL ANTHROPOLOGIST, lab, RT, psych nurse, social security assessor, endodontic assistant, teacher, control systems drafting officer, casework manager)? Give summary @ -Did discuss case with on-call orthopedics recommends patient remained 50% weightbearing may be discharged with follow-up in office. Was smoking cessation discussed for >3mins.? @ -No Was critical care preformed (if so, how long)? @ -No Were there social determinants of health that impacted care today? How? (Homelessness, low income, unemployed, alcoholism, drug addiction, transportation, low edu. Level, literacy, decrease access to med. care, retirement, rehab)? @ -No Was there de-escalation of care discussed even if they declined (Discuss DNR or withdrawal of care, Hospice)? DNR status @ -No What co-morbidities impacted this encounter? (DM, HTN, Smoking, COPD, CAD, Cancer, CVA, ARF, Chemo, Hep., AIDS, mental health diagnosis, sleep apnea, morbid obesity)? @ -None Was patient admitted / discharged? Hospital course, mention meds given and route, prescriptions, significant lab abnormalities, going to OR and other pertinent info. @ -Discharge patient has a left greater trochanteric fracture no surgical intervention at this time. Patient is remained 50% weightbearing I did recommend using a walker patient prefers using a crutch. Patient provided analgesics and discharged in stable condition Undiagnosed new problem with uncertain prognosis? @ -No Drug Therapy requiring intensive monitoring for toxicity (Heparin, Nitro, Insu gustabo, Cardizem)? @ -No Were any procedures done? @ -No Diagnosis/symptom? @ -Left greater trochanteric fracture Acute, or Chronic, or Acute on Chronic? @ -Acute Uncomplicated (without systemic symptoms) or Complicated (systemic symptoms)? @ -Uncomplicated Side effects of treatment? @ -No Exacerbation, Progression, or Severe Exacerbation? @ -No Poses a threat to life or bodily function? How? (Chest pain, [place], LA, pneumonia, PE, COPD, DKA, ARF, appy, cholecystitis, CVA, Diverticulitis, Homicidal, Suicidal, threat to staff... and all critical care pts) @ -No Disposition Clinical Impression: Fall, Fracture of greater trochanter of left femur Disposition: HOME SELF-CARE Condition: Stable Instructions (If sedation given, give patient instructions): Leg Fracture (ED) Additional Instructions: Please remain 50% weightbearing on your left leg. Please return to the Emergency Department if symptoms worsen or any other concerns. Prescriptions: HYDROcodone/APAP 7.5-325MG [[place] 7.5-325] 1 tab PO Q6HR PRN 3 Days #12 tab PRN Reason: pain Is patient prescribed a controlled substance at d/c from ED?: No Referrals: Deandre Piedra MD [Primary Care Provider] - 1-2 days Rojelio Gabriel DO [Doctor of Osteopathic Medicine] - 1-2 days Time of Disposition: 14:29
[2023-04-13 14:53] VITALS: BP 136/77; PULSE 72; RESP 18; TEMP 98.4
== END 2023-04-13 14:53 | disposition home or self-care (01) ==
LOC: EC 11:26
DX: S72.112A Displaced fracture of greater trochanter of left femur, initial encounter for closed fracture (principal); I10 Essential (primary) hypertension; I25.2 Old myocardial infarction; F41.9 Anxiety disorder, unspecified; E11.36 Type 2 diabetes mellitus with diabetic cataract; E78.5 Hyperlipidemia, unspecified; F32.A Depression, unspecified; Z79.84 Long term (current) use of oral hypoglycemic drugs; Z79.899 Other long term (current) drug therapy; Z87.891 Personal history of nicotine dependence; Z88.2 Allergy status to sulfonamides; Z90.49 Acquired absence of other specified parts of digestive tract; W01.0XXA Fall on same level from slipping, tripping and stumbling without subsequent striking against object, initial encounter
CPT/HCPCS: 73502; 99284

== ENCOUNTER → 2023-08-27 | Outpatient (CLI) | payer MEDICARE ==
[2023-08-27 15:55] LABS: ALT 10 U/L (8-44); AST 18 U/L (13-35); Albumin 3.9 g/dL (3.8-4.9); Albumin/Globulin Ratio 1.39 Ratio (1.60-3.17); Alkaline Phosphatase 90 U/L (41-126); BUN/Creat Ratio 19.57 Ratio (12.00-20.00); Blood Urea Nitrogen 13.7 mg/dL (9.0-27.0); Calcium 9.4 mg/dL (8.7-10.3); Carbon Dioxide 24.7 mmol/L (21.6-31.8); Chloride 106 mmol/L (96-109); Chol/HDL Ratio 2.22 Ratio; Globulin 2.8 g/dL (1.6-3.3); Glucose 105 mg/dL (70-110); Potassium 4.2 mmol/L (3.5-5.5); Sodium 141 mmol/L (135-145); Total Bilirubin 0.5 mg/dL (0.3-1.2); Total Protein 6.7 g/dL (6.2-8.2); VLDL Calculation 13.46 mg/dL (5.00-40.00)
[2023-08-27 19:31] LABS: Microalbumin Creatinine Ratio <16 mg/g Cr (0-30); Urine Creatinine 73.4 mg/dL (28.0-217.0)
== END | disposition home or self-care (01) ==
LOC: LABWHC1 10:03
PROVIDERS: ATTEND Internal Medicine
DX: E11.65 Type 2 diabetes mellitus with hyperglycemia (principal); E55.9 Vitamin D deficiency, unspecified; M89.9 Disorder of bone, unspecified
CPT/HCPCS: 36415; 80053; 80061; 82043; 82306; 82523; 82570; 83036

== ENCOUNTER → 2023-10-19 | Outpatient (CLI) | payer MEDICARE ==
[2023-10-19 18:21] LABS: Basophils # (A) 0.04 X 10*3/uL (0.00-0.10); Basophils % (A) 0.6 %; Eosinophils # (A) 0.15 X 10*3/uL (0.04-0.35); Eosinophils % (A) 2.3 %; HCT 40.3 % (37.2-46.3); Lymphocytes # (A) 1.59 X 10*3/uL (0.90-5.00); Lymphocytes % (A) 24.8 %; MCH 29.9 pg (27.0-32.0); MCHC 32.3 g/dL (32.0-37.0); MCV 92.6 FL (80.0-97.0); Mean Platelet Volume 11.3 FL (9.5-12.2); Monocytes # (A) 0.61 X 10*3/uL (0.20-1.00); Monocytes % (A) 9.5 %; NRBC Per 100 WBC 0 X 10*3/uL (0.00-0.01); Neutrophils % (A) 62.5 %; Platelet Count 108 X 10*3/uL (140-440); RBC 4.35 X 10*6/uL (4.10-5.20); RDW 13.6 % (11.5-14.5); WBC 6.41 X 10*3/uL (4.50-10.00)
[2023-10-19 18:34] LABS: ALT 17 U/L (8-44); AST 23 U/L (13-35); Albumin/Globulin Ratio 1.54 Ratio (1.60-3.17); Alkaline Phosphatase 82 U/L (41-126); BUN/Creat Ratio 18.44 Ratio (12.00-20.00); Blood Urea Nitrogen 16.6 mg/dL (9.0-27.0); Calcium 9.3 mg/dL (8.7-10.3); Carbon Dioxide 23.5 mmol/L (21.6-31.8); Chloride 105 mmol/L (96-109); Globulin 2.6 g/dL (1.6-3.3); Glucose 75 mg/dL (70-110); Potassium 4.3 mmol/L (3.5-5.5); Sodium 141 mmol/L (135-145); T4, Free (Free Thyroxine) 1.33 ng/dL (0.80-1.80); Total Bilirubin 0.6 mg/dL (0.3-1.2); Total Protein 6.6 g/dL (6.2-8.2)
--- NOTE | 2023-10-20 10:37 | US ---
EXAMINATION TYPE: US thyroid st tissue head/neck DATE OF EXAM: 10/19/2023 COMPARISON: NONE CLINICAL INDICATION: Female, 68 years old with history of E04.1 THYROID NODULE; Hx thyroid nodules wi th biopsy - not on medications GLAND SIZE: Right Lobe: 5.8 x 2.0 x 2.1 cm Overall Parenchyma: homogeneous Left Lobe: 4.8 x 1.6 x 1.7 cm Overall Parenchyma: homogeneous Isthmus Thickness: 0.2 cm NODULES RIGHT: # of nodules measured on right: 2 1. 1.8 X 1.5 x 1.6 cm, mid mid, solid or almost completely solid, isoechoic nodule, which is wider than tall, with ill-defined margins, without echogenic foci. Prior size: ? Prior not here 2. 0.8 X 0.4 x 1.0 cm, upper lateral, spongiform, isoechoic nodule, which is wider than tall, with ill-defined margins, without echogenic foci. Prior size: ? Prior not here LEFT: # of nodules measured on left: 0 ISTHMUS: # of nodules measured in the isthmus: 0 Bilateral neck scanned, no evidence of lymphadenopathy. IMPRESSION: 1. No thyroid gland enlargement. 2. 2 right lobe thyroid nodules, largest nodule is labeled nodule 1. And measures 1.8 cm. It is a TR 3 nodule. Based on its size, a yearly follow-up is recommended. 2017 ACR TI-RADS LEVEL: 3 *Highest TI-RADS level nodule reported
== END | disposition home or self-care (01) ==
LOC: RADUSWWP 13:19
PROVIDERS: ATTEND Otolaryngology
DX: E04.2 Nontoxic multinodular goiter (principal); K74.60 Unspecified cirrhosis of liver
CPT/HCPCS: 36415; 76536; 80053; 82105; 84439; 84443; 85025

== ENCOUNTER → 2024-01-10 | Outpatient (CLI) | payer MEDICARE ==
[2024-01-10 15:10] LABS: Basophils # (A) 0.08 X 10*3/uL (0.00-0.10); Basophils % (A) 0.9 %; Eosinophils # (A) 0.22 X 10*3/uL (0.04-0.35); Eosinophils % (A) 2.5 %; HCT 44.9 % (37.2-46.3); HGB 14.5 g/dL (12.0-15.0); Lymphocytes % (A) 23.6 %; MCH 30.3 pg (27.0-32.0); MCHC 32.3 g/dL (32.0-37.0); MCV 93.7 FL (80.0-97.0); Mean Platelet Volume 9.8 FL (9.5-12.2); Monocytes # (A) 0.62 X 10*3/uL (0.20-1.00); NRBC Per 100 WBC 0 X 10*3/uL (0.00-0.01); Neutrophils # (A) 5.83 X 10*3/uL (1.80-7.70); Neutrophils % (A) 65.7 %; Platelet Count 129 X 10*3/uL (140-440); RBC 4.79 X 10*6/uL (4.10-5.20); RDW 13.6 % (11.5-14.5); WBC 8.88 X 10*3/uL (4.50-10.00)
[2024-01-10 15:44] LABS: % Iron Saturation 21.98 (12.00-45.00); BUN/Creat Ratio 16.29 Ratio (12.00-20.00); Blood Urea Nitrogen 11.4 mg/dL (9.0-27.0); Glucose 99 mg/dL (70-110); Iron 100 UG/DL (50-170); Total Iron Binding Capacity 455 UG/DL (228-460)
[2024-01-10 15:45] LABS: ALT 13 U/L (8-44); AST 20 U/L (13-35); Albumin 4.2 g/dL (3.8-4.9); Albumin/Globulin Ratio 1.62 Ratio (1.60-3.17); Alkaline Phosphatase 74 U/L (41-126); Calcium 9.1 mg/dL (8.7-10.3); Chloride 104 mmol/L (96-109); Ferritin 22.5 ng/mL (10.0-291.0); Globulin 2.6 g/dL (1.6-3.3); Potassium 4.3 mmol/L (3.5-5.5); Sodium 140 mmol/L (135-145); Total Bilirubin 0.7 mg/dL (0.3-1.2); Total Protein 6.8 g/dL (6.2-8.2)
== END | disposition home or self-care (01) ==
LOC: LABWHC1 11:30
PROVIDERS: ATTEND Family Medicine
DX: D50.9 Iron deficiency anemia, unspecified (principal)
CPT/HCPCS: 36415; 80053; 82607; 82728; 82746; 83540; 83550; 85025

== ENCOUNTER → 2024-01-17 | Outpatient (CLI) | payer MEDICARE ==
--- NOTE | 2024-01-18 00:12 | US ---
EXAMINATION TYPE: US liver DATE OF EXAM: 01/17/2024 COMPARISON: NONE CLINICAL INDICATION: Female, 68 years old with history of K74.60 CIRRHOSIS OF LIVER; TECHNIQUE: Multiple sonographic images of the right upper quadrant are obtained. FINDINGS: EXAM MEASUREMENTS: Liver Length: 15.9 cm CBD: 0.7 cm Right Kidney: 10.1 x 4.9 x 5.0 cm Pancreas: visualized portions wnl, limited by overlying midline bowel gas Liver: Heterogeneous course echotexture . No discrete mass is evident Gallbladder: surgically absent Evidence for sonographic Osorio's sign: no CBD: wnl Right Kidney: wnl IMPRESSION: 1. Mild fatty infiltration of the liver
== END | disposition home or self-care (01) ==
LOC: RADUSWWP 07:29
PROVIDERS: ATTEND Internal Medicine Gastroenterology
DX: K74.60 Unspecified cirrhosis of liver (principal); K76.0 Fatty (change of) liver, not elsewhere classified
CPT/HCPCS: 76705

== ENCOUNTER → 2024-01-17 | Outpatient (CLI) | payer MEDICARE ==
--- NOTE | 2024-01-17 08:25 | CT ---
EXAMINATION TYPE: CT brain wo con DATE OF EXAM: 01/17/2024 COMPARISON: None INDICATION: Dizziness/unsteadiness and right foot drop x2 months. DLP: 1110 mGycm, Automated exposure control for dose reduction was used. CONTRAST: None CT of the brain is performed utilizing 3 mm thick sections through the posterior fossa and 3 mm thick sections through the remaining calvarium. Study is performed within 24 hours of arrival to the hosp [place]. No abnormal hyperdensity is present to suggest an acute intracranial hemorrhage. No mass lesion is evident. No acute infarcts are evident. Ventricles and sulci are appropriate for the patient age. Paranasal sinuses and mastoid air cells within the [id number] are clear. IMPRESSION: 1. No acute intracranial process. Follow-up MRI can be performed as clinically indicated.
== END | disposition home or self-care (01) ==
LOC: RADCTMAIN 07:33
PROVIDERS: ATTEND Family Medicine
DX: M21.371 Foot drop, right foot (principal); R42 Dizziness and giddiness
CPT/HCPCS: 70450

== ENCOUNTER → 2024-02-26 | Outpatient (CLI) | payer MEDICARE ==
[2024-02-26 19:47] LABS: ALT 12 U/L (8-44); AST 19 U/L (13-35); Albumin 4.5 g/dL (3.8-4.9); Albumin/Globulin Ratio 1.61 Ratio (1.60-3.17); Alkaline Phosphatase 81 U/L (41-126); Calcium 9.7 mg/dL (8.7-10.3); Carbon Dioxide 23.9 mmol/L (21.6-31.8); Chloride 104 mmol/L (96-109); Globulin 2.8 g/dL (1.6-3.3); Glucose 99 mg/dL (70-110); Potassium 4.4 mmol/L (3.5-5.5); Sodium 141 mmol/L (135-145); Total Bilirubin 0.6 mg/dL (0.3-1.2); Total Protein 7.3 g/dL (6.2-8.2)
== END | disposition home or self-care (01) ==
LOC: LABWHC1 11:32
PROVIDERS: ATTEND Internal Medicine
DX: E11.65 Type 2 diabetes mellitus with hyperglycemia (principal); E55.9 Vitamin D deficiency, unspecified
CPT/HCPCS: 36415; 80053; 82306; 83036

== ENCOUNTER 2024-04-21 12:44 | Emergency (ER) | payer MEDICARE ==
--- NOTE | 2024-04-21 13:00 | ED ---
Nausea/Vomiting/Diarrhea HPI - General Chief complaint: Nausea/Vomiting/Diarrhea Stated complaint: Diarrhea,weakness Time Seen by Provider: 04/21/24 12:59 Source: patient, RN notes reviewed Mode of arrival: ambulatory Limitations: no limitations - History of Present Illness Initial comments: This is a 69-year-old who presents emergency room chief complaint of diffuse abdominal pain, diarrhea, belching over the past week. States that she was evaluated by urgent care who informed her to report emergency room for further evaluation. She endorses chills with no reported fevers. Denies nausea and vomiting. History of cholecystectomy. Denies hematochezia however states that her stools have been mildly dark however she has been taking Pepto-Bismol with minimal relief. She has been taking Imodium at home with no relief. Denies recent antibiotic use. - Related Data Home Medications Medication Instructions Recorded Confirmed Isosorbide Mononitrate [Isosorbide 30 mg PO DAILY 09/20/16 04/21/24 Mononitrate ER] Nitroglycerin Sl Tabs [Nitrostat] 0.4 mg SUBLINGUAL Q5M PRN 09/20/16 04/21/24 Omeprazole 20 mg PO HS 09/20/16 04/21/24 Simvastatin [Zocor] 20 mg PO HS 09/20/16 04/21/24 Solifenacin Succinate [Vesicare] 5 mg PO HS 09/20/16 04/21/24 Midodrine [ProAmatine] 5 mg PO BID 09/30/19 04/21/24 Aspirin 81 mg PO HS 04/21/24 04/21/24 Cephalexin [Keflex] 500 mg PO DAILY 04/21/24 04/21/24 Penciclovir 1% Cream [Denavir 1 applic TOPICAL 5XD PRN 04/21/24 04/21/24 Cream] Tirzepatide [Mounjaro] 5 mg SQ SA 04/21/24 04/21/24 carvediloL [Coreg] 6.25 mg PO BID 04/21/24 04/21/24 valACYclovir HCL [Valtrex] 1,000 mg PO TID PRN 04/21/24 04/21/24 Allergies Allergy/AdvReac Type Severity Reaction Status Date / Time ciprofloxacin [From Cipro] Allergy Unknown Verified 04/21/24 14:01 clindamycin Allergy Dyspnea Verified 04/21/24 14:01 Sulfa (Sulfonamide AdvReac Urogenital Verified 04/21/24 14:01 Antibiotics) problems, NVD Review of Systems ROS Statement: Those systems with pertinent positive or pertinent negative responses have been documented in the HPI. ROS Other: All systems not noted in ROS Statement are negative. Past Medical History Past Medical History: Chest Pain / Angina, Diabetes Mellitus, Hyperlipidemia, Hypertension, Myocardial Infarction (NM), Thyroid Disorder Additional Past Medical History / Comment(s): autonomic dysfunction, neuropathy of head, orthostatic hypotension, IBS, NM X3 Last Myocardial Infarction Date:: 2015 History of Any Multi-Drug Resistant Organisms: None Reported Past Surgical History: Breast Surgery, Section, Cholecystectomy, Heart Catheterization With Stent, Hysterectomy, Tonsillectomy, Tubal Ligation Additional Past Surgical History / Comment(s): pannilectomy, breast biopsy, cataract removed bilateral Past Anesthesia/Blood Transfusion Reactions: No Reported Reaction Date of Last Stent Placement:: 2015 Past Psychological History: Anxiety, Depression Smoking Status: Former smoker Past Alcohol Use History: Occasional Past Drug Use History: None Reported - Past Family History Mother Family Medical History: Cancer, Diabetes Mellitus, Thyroid Disorder Additional Family Medical History / Comment(s): Kidney, bladder, thyroid cancer and heart disease, type 1 diabetic,issues with blood General Exam - General Exam Comments Initial Comments: Visual Physical Exam Vital signs reviewed General: Well-appearing, nontoxic, no acute distress. Head: Normocephalic, atraumatic Eyes: PERRLA, EOMI ENT: Airway patent Chest: Nonlabored breathing Skin: No visual rash, normal skin tone Neuro: Alert and oriented 3 Musculoskeletal: No gross abnormalities Limitations: no limitations General appearance: alert, in no apparent distress Eye exam: Present: normal appearance, PERRL, EOMI. Absent: scleral icterus, conjunctival injection, periorbital swelling ENT exam: Present: normal exam, mucous membranes moist Neck exam: Present: normal inspection. Absent: tenderness, meningismus, lymphadenopathy Respiratory exam: Present: normal lung sounds bilaterally. Absent: respiratory distress, wheezes, rales, rhonchi, stridor Cardiovascular Exam: Present: regular rate, normal rhythm, normal heart sounds. Absent: systolic murmur, diastolic murmur, rubs, gallop, clicks GI/Abdominal exam: Present: soft, tenderness (left mid abdomen), normal bowel sounds. Absent: distended, guarding, rebound, rigid Extremities exam: Present: normal inspection, full ROM, normal capillary refill. Absent: tenderness, pedal edema, joint swelling, calf tenderness Back exam: Present: normal inspection Neurological exam: Present: alert, oriented X3, CN II-XII intact Skin exam: Present: warm, dry, intact, normal color. Absent: rash Course Vital Signs 04/21/24 04/21/24 04/21/24 12:49 13:33 15:40 Temperature 98 F 98.3 F 97.7 F Pulse Rate 76 81 Respiratory 16 17 Rate Blood Pressure 135/80 117/75 O2 Sat by Pulse 96 97 Oximetry Medical Decision Making - Medical Decision Making Was pt. sent in by a medical professional or institution (Dr. PA, BI MANAGER, urgent care, hospital, or longterm...) When possible be specific @ -Was advised by urgent care to report to Emergency Department for further evaluation Did you speak to anyone other than the patient for history (EMS, parent, family, police, friend...)? What history was obtained from this source @ -No Did you review nursing and triage notes (agree or disagree)? Why? @ -I reviewed and agree with nursing and triage notes Were old charts reviewed (outside hosp., previous admission, EMS record, old EKG, old radiological studies, urgent care reports/EKG's, longterm records)? Report findings @ -No old charts were reviewed Differential Diagnosis (chest pain, altered mental status, abdominal pain women, abdominal pain men, vaginal bleeding, weakness, fever, dyspnea, syncope, heada philip, dizziness, GI bleed, back pain, seizure, CVA, palpatations, mental health, musculoskeletal)? @ -Differential Abdominal Pain Women: Appendicitis, Cholecystitis, diverticulosis, ischemic bowel, pancreatitis, hepatitis, UTI, gastroenteritis, AAA, incarcerated hernia, bowel obstruction, constipation, inflammatory bowel, hepatitis, peptic ulcer disease, splenic infarction, perforated viscus, vulvitis, ovarian torsion, PID, kidney stone, placenta abruption, this is not meant to be an all-inclusive list EKG interpreted by me (3pts min.). @ -none X-rays interpreted by me (1pt min.). @ -None done CT interpreted by me (1pt min.). @ -CT of the abdomen and pelvis with IV contrast no evidence of bowel obstruction, free intraperitoneal air or fluid with mild splenomegaly and nodular liver. U/S interpreted by me (1pt. min.). @ -None done What testing was considered but not performed or refused? (CT, X-rays, U/S, labs)? Why? @ -None What meds were considered but not given or refused? Why? @ -None Did you discuss the management of the patient with other professionals (pro fessionals i.e. , PA, BI MANAGER, lab, RT, psych nurse, director of social media marketing, potato chip fryer, teacher, chief talent officer, vocational case manager)? Give summary @ -No Was smoking cessation discussed for >3mins.? @ -No Was critical care preformed (if so, how long)? @ -No Were there social determinants of health that impacted care today? How? (Homelessness, low income, unemployed, alcoholism, drug addiction, transportation, low edu. Level, literacy, decrease access to med. care, retirement, rehab)? @ -No Was there de-escalation of care discussed even if they declined (Discuss DNR or withdrawal of care, Hospice)? DNR status @ -No What co-morbidities impacted this encounter? (DM, HTN, Smoking, COPD, CAD, Cancer, CVA, ARF, Chemo, Hep., AIDS, mental health diagnosis, sleep apnea, morbid obesity)? @ -None Was patient admitted / discharged? Hospital course, mention meds given and route, prescriptions, significant lab abnormalities, going to OR and other pertinent info. @-Discharge. 69-year-old female with diarrhea and abdominal pain. Patient was Evaluation the patient she is asked to come for no signs acute distress. Her vitals are stable. Patient is noted to have left-sided abdominal tenderness to palpation with equal bowel sounds are all quadrants. She will be symptomatically treated with antiemetics for nausea and fluids with concern for dehydration pending laboratory results and CT imaging. She is agree with this plan. Urinalysis unremarkable for signs of infection. CBC unremarkable, CMP reveals mild hypokalemia 3.4, hypomagnesemia 1.3, amylase lipase within normal limits, lactate nonelevated at 1.1, acidosis with a CO2 of 19 likely secondary to diarrhea. The unremarkable for acute process. On discussion, patient states that she does have a history of cirrhosis and enlarged spleen where she has follow-up with GI specialist outpatient with no acute findings. Patient's LFTs are within normal limits. She is provided with starter pack of Lomotil to take as needed for diarrhea. Patient has had any episodes of diarrhea while in the emergency department however stool culture was ordered but was not obtained. All questions have been answered at bedside and strict return parameters discussed with the patient she is verbalized understanding. Case discussed with my attending Dr. Myers Undiagnosed new problem with uncertain prognosis? @ -No Drug Therapy requiring intensive monitoring for toxicity (Heparin, Nitro, Insulin, Cardizem)? @ -No Were any procedures done? @ -No Diagnosis/symptom? @ -diarrhea, abdominal pain Acute, or Chronic, or Acute on Chronic? @ -acute Uncomplicated (without systemic symptoms) or Complicated (systemic symptoms)? @ -uncomplicated Side effects of treatment? @ -No Exacerbation, Progression, or Severe Exacerbation? @ -No Poses a threat to life or bodily function? How? (Chest pain, USA, NM, pneumonia, PE, COPD, DKA, ARF, appy, cholecystitis, CVA, Diverticulitis, Homicidal, Suicidal, threat to staff... and all critical care pts) @ -No - Lab Data Result diagrams: 04/21/24 13:23 04/21/24 13:23 Lab Results 04/21/24 04/21/24 04/21/24 Range/Units 13:23 13:23 13:23 WBC 8.8 (3.8-10.6) k/uL RBC 4.95 (3.80-5.40) m/uL Hgb 15.7 (11.4-16.0) gm/dL Hct 47.8 H (34.0-46.0) % MCV 96.7 (80.0-100.0) fL MCH 31.8 (25.0-35.0) pg MCHC 32.9 (31.0-37.0) g/dL RDW 13.7 (11.5-15.5) % Plt Count 125 L (150-450) k/uL MPV 7.8 Neutrophils % 72 % Lymphocytes % 18 % Monocytes % 5 % Eosinophils % 3 % Basophils % 1 % Neutrophils # 6.3 (1.3-7.7) k/uL Lymphocytes # 1.6 (1.0-4.8) k/uL Monocytes # 0.5 (0-1.0) k/uL Eosinophils # 0.2 (0-0.7) k/uL Basophils # 0.1 (0-0.2) k/uL Sodium 138 (137-145) mmol/L Potassium 3.4 L (3.5-5.1) mmol/L Chloride 109 H (98-107) mmol/L Carbon Dioxide 19 L (22-30) mmol/L Anion Gap 10 mmol/L BUN 16 (7-17) mg/dL Creatinine 0.68 (0.52-1.04) mg/dL Est GFR (CKD-EPI)AfAm >90 (>60 ml/min/1.73 sqM) Est GFR (CKD-EPI)NonAf 88 (>60 ml/min/1.73 sqM) Glucose 86 (74-99) mg/dL Plasma Lactic Acid Rory (0.7-2.0) mmol/L Calcium 9.3 (8.4-10.2) mg/dL Magnesium 1.3 L (1.6-2.3) mg/dL Total Bilirubin 1.2 (0.2-1.3) mg/dL AST 19 (14-36) U/L ALT 12 (4-34) U/L Alkaline Phosphatase 66 (38-126) U/L C-Reactive Protein <0.5 (<1.0) mg/dL Total Protein 7.7 (6.3-8.2) g/dL Albumin 4.6 (3.5-5.0) g/dL Amylase 55 (30-110) U/L Lipase 71 (23-300) U/L Urine Color Colorless Urine Appearance Clear (Clear) Urine pH 5.5 (5.0-8.0) Ur Specific [place] 1.044 H (1.001-1.035) Urine Protein Negative (Negative) Urine Glucose (UA) Negative (Negative) Urine Ketones Negative (Negative) Urine Blood Negative (Negative) Urine Nitrite Negative (Negative) Urine Bilirubin Negative (Negative) Urine Urobilinogen <2.0 (<2.0) mg/dL Ur Leukocyte Esterase Trace H (Negative) Urine RBC <1 (0-5) /hpf Urine WBC 3 (0-5) /hpf Ur Squamous Epith Cells 1 (0-4) /hpf Urine Mucus Rare H (None) /hpf 10/21/24 Range/Units 13:23 WBC (3.8-10.6) k/uL RBC (3.80-5.40) m/uL Hgb (11.4-16.0) gm/dL Hct (34.0-46.0) % MCV (80.0-100.0) fL MCH (25.0-35.0) pg MCHC (31.0-37.0) g/dL RDW (11.5-15.5) % Plt Count (150-450) k/uL MPV Neutrophils % % Lymphocytes % % Monocytes % % Eosinophils % % Basophils % % Neutrophils # (1.3-7.7) k/uL Lymphocytes # (1.0-4.8) k/uL Monocytes # (0-1.0) k/uL Eosinophils # (0-0.7) k/uL Basophils # (0-0.2) k/uL Sodium (137-145) mmol/L Potassium (3.5-5.1) mmol/L Chloride (98-107) mmol/L Carbon Dioxide (22-30) mmol/L Anion Gap mmol/L BUN (7-17) mg/dL Creatinine (0.52-1.04) mg/dL Est GFR (CKD-EPI)AfAm (>60 ml/min/1.73 sqM) Est GFR (CKD-EPI)NonAf (>60 ml/min/1.73 sqM) Glucose (74-99) mg/dL Plasma Lactic Acid Rory 1.1 (0.7-2.0) mmol/L Calcium (8.4-10.2) mg/dL Magnesium (1.6-2.3) mg/dL Total Bilirubin (0.2-1.3) mg/dL AST (14-36) U/L ALT (4-34) U/L Alkaline Phosphatase (38-126) U/L C-Reactive Protein (<1.0) mg/dL Total Protein (6.3-8.2) g/dL Albumin (3.5-5.0) g/dL Amylase (30-110) U/L Lipase (23-300) U/L Urine Color Urine Appearance (Clear) Urine pH (5.0-8.0) Ur Specific [place] (1.001-1.035) Urine Protein (Negative) Urine Glucose (UA) (Negative) Urine Ketones (Negative) Urine Blood (Negative) Urine Nitrite (Negative) Urine Bilirubin (Negative) Urine Urobilinogen (<2.0) mg/dL Ur Leukocyte Esterase (Negative) Urine RBC (0-5) /hpf Urine WBC (0-5) /hpf Ur Squamous Epith Cells (0-4) /hpf Urine Mucus (None) /hpf Disposition Clinical Impression: Diarrhea, Diffuse abdominal pain Disposition: HOME SELF-CARE Condition: Good Instructions (If sedation given, give patient instructions): Acute Diarrhea (ED) Additional Instructions: Please return to the Emergency Department if symptoms worsen or any other concerns. Recommend that you take Lomotil strictly only as needed. Increase hydration. Follow-up with your primary care provider within the next week for further evaluation as well. Is patient prescribed a controlled substance at d/c from ED?: No Referrals: Deandre Piedra MD [Primary Care Provider] - 1-2 days Time of Disposition: 15:34
[2024-04-21 13:43] LABS: Basophils # (A) 0.1 k/uL (0-0.2); Basophils % (A) 1 %; Eosinophils # (A) 0.2 k/uL (0-0.7); Eosinophils % (A) 3 %; HCT 47.8 % (34.0-46.0); HGB 15.7 gm/dL (11.4-16.0); Lymphocytes # (A) 1.6 k/uL (1.0-4.8); Lymphocytes % (A) 18 %; MCH 31.8 pg (25.0-35.0); MCHC 32.9 g/dL (31.0-37.0); MCV 96.7 fL (80.0-100.0); Mean Platelet Volume 7.8; Monocytes # (A) 0.5 k/uL (0-1.0); Monocytes % (A) 5 %; Neutrophils # (A) 6.3 k/uL (1.3-7.7); Neutrophils % (A) 72 %; Platelet Count 125 k/uL (150-450); RBC 4.95 m/uL (3.80-5.40); RDW 13.7 % (11.5-15.5); WBC 8.8 k/uL (3.8-10.6)
[2024-04-21] MEDS: SODIUM CHLORIDE 0.9% 1,000 ML IV STA (13:47)
[2024-04-21] MEDS: ONDANSETRON 4 MG/2 ML VIAL IVP STA (13:48)
[2024-04-21 14:08] LABS: ALT 12 U/L (4-34); AST 19 U/L (14-36); African American GFR (CKD) >90 (>60 ml/min/1.73 sqM); Albumin 4.6 g/dL (3.5-5.0); Alkaline Phosphatase 66 U/L (38-126); Amylase 55 U/L (30-110); Anion Gap 10 mmol/L; Blood Urea Nitrogen 16 mg/dL (7-17); C Reactive Protein <0.5 mg/dL (<1.0); Calcium 9.3 mg/dL (8.4-10.2); Carbon Dioxide 19 mmol/L (22-30); Chloride 109 mmol/L (98-107); Glucose 86 mg/dL (74-99); Lipase 71 U/L (23-300); Magnesium 1.3 mg/dL (1.6-2.3); Non-African American GFR(CKD) 88 (>60 ml/min/1.73 sqM); Potassium 3.4 mmol/L (3.5-5.1); Sodium 138 mmol/L (137-145); Total Bilirubin 1.2 mg/dL (0.2-1.3); Total Protein 7.7 g/dL (6.3-8.2)
--- NOTE | 2024-04-21 15:02 | CT ---
EXAMINATION TYPE: CT abdomen pelvis w con DATE OF EXAM: 04/21/2024 COMPARISON: None HISTORY: Diffuse abdominal pain, chronic diarrhea. CT DLP: 687.4 mGycm Automated exposure control for dose reduction was used. TECHNIQUE: Helical acquisition of images was performed from the lung bases through the pelvis. CONTRAST: Performed without Oral Contrast and with IV Contrast, patient injected with 100 mL of Isovue 300. FINDINGS: The lung bases are clear. There is surgical absence of the gallbladder. There is no biliary ductal dilatation. There is no focal mass or organomegaly involving the liver, pancreas, spleen or adrenal glands. Liver margin appears mildly lobulated and there splenomegaly raising the question of cirrhosis and portal hypertension. The pancreas and adrenal glands are normal. There is a 2 to 3 mm nonobstructing left renal calculus. The caliber of the aorta is normal and is no retroperitoneal adenopathy. The bowel loops are normal in caliber and there is no evidence of dilatation or obstruction. No infla mmatory changes are identified in the bowel wall or mesentery. There is a small right inguinal hernia containing a single bowel loop which does not appear strangulated or obstructed. There is no free intraperitoneal air or fluid. No pelvic mass or adenopathy. There is surgical absence of the uterus. The osseous structures and soft tissues are intact. IMPRESSION: 1. Mild splenomegaly and suggestion of nodular liver raising the question of cirrhosis. Clinical danilo elation is recommended. 2. 2 mm nonobstructing left renal calculus. 3. No bowel obstruction, free intraperitoneal air or fluid. [facility], , 04/21/2024 3:00 PM
[2024-04-21 15:22] LABS: Appearance,Urine Clear (Clear); Bilirubin,Urine Negative (Negative); Blood,Urine Negative (Negative); Color,Urine Colorless; Glucose,Urine (UA) Negative (Negative); Ketones,Urine Negative (Negative); Leukocyte Esterase,Urine Trace (Negative); Mucus,Urine Rare /hpf; Nitrite,Urine Negative (Negative); PH, Urine 5.5 (5.0-8.0); Protein,Urine Negative (Negative); RBC,Urine <1 /hpf (0-5); Specific Gravity,Urine 1.044 (1.001-1.035); Squamous Epithelial Cell,Urine 1 /hpf (0-4); Urobilinogen,Urine <2.0 mg/dL (<2.0); WBC,Urine 3 /hpf (0-5)
[2024-04-21] MEDS: MAGNESIUM OXIDE 400 MG TAB PO STA (15:37)
[2024-04-21] MEDS: POTASSIUM CHLORIDE ER 10 MEQ TAB.ER.PRT PO STA (15:37)
[2024-04-21] MEDS: DIPHENOX-ATROP STARTER PACK 8 TAB BTL PO STA (15:39)
[2024-04-21 15:42] VITALS: BP 117/75; PULSE 81; RESP 17; TEMP 97.7
== END 2024-04-21 15:47 | disposition home or self-care (01) ==
LOC: EC 12:44
CPT/HCPCS: 36415; 74177; 80053; 81001; 82150; 83605; 83690; 83735; 85025; 86140; 96361; 96374; 99284

== ENCOUNTER → 2024-06-17 | Outpatient (CLI) | payer MEDICARE | LOC: CPPFTMAIN 08:14 | PROVIDERS: ATTEND Family Medicine | DX: J44.9 Chronic obstructive pulmonary disease, unspecified (principal); Z88.1 Allergy status to other antibiotic agents; Z88.2 Allergy status to sulfonamides; Z87.891 Personal history of nicotine dependence | CPT/HCPCS: 94060; 94726; 94729 ==

== ENCOUNTER → 2024-07-17 | Outpatient (CLI) | payer MEDICARE ==
--- NOTE | 2024-07-17 08:11 | US ---
EXAMINATION TYPE: US liver DATE OF EXAM: 07/17/2024 COMPARISON: CT & US 2023 CLINICAL INDICATION: Female, 69 years old with history of K74.60 UNSPECIFIED CIRRHOSIS; TECHNIQUE: Grayscale and color Doppler imaging of the right upper quadrant was performed. FINDINGS: EXAM MEASUREMENTS: Liver Length: 15.4 cm CBD: 0.6 cm Right Kidney: 9.6 x 4.2 x 4.8 cm Pancreas: visualized portions wnl, limited by overlying midline bowel gas Liver: heterogeneous, course echotexture Gallbladder: surgically absent Evidence for sonographic Osorio's sign: no CBD: borderline Right Kidney: wnl IMPRESSION: 1. Mild fatty infiltration of the liver [facility], , 07/17/2024 8:09 AM
== END | disposition home or self-care (01) ==
LOC: RADUSWWP 07:10
PROVIDERS: ATTEND Internal Medicine Gastroenterology
DX: K74.60 Unspecified cirrhosis of liver (principal); K76.0 Fatty (change of) liver, not elsewhere classified
CPT/HCPCS: 76705

== ENCOUNTER → 2024-07-17 | Outpatient (CLI) | payer MEDICARE ==
[2024-07-17 15:30] LABS: ALT 13 U/L (8-44); AST 17 U/L (13-35); Albumin 4.1 g/dL (3.8-4.9); Albumin/Globulin Ratio 1.46 Ratio (1.60-3.17); Alkaline Phosphatase 84 U/L (41-126); Calcium 9.4 mg/dL (8.7-10.3); Carbon Dioxide 23.8 mmol/L (21.6-31.8); Chloride 107 mmol/L (96-109); Globulin 2.8 g/dL (1.6-3.3); Glucose 85 mg/dL (70-110); Potassium 4.2 mmol/L (3.5-5.5); Sodium 142 mmol/L (135-145); Total Bilirubin 0.6 mg/dL (0.3-1.2); Total Protein 6.9 g/dL (6.2-8.2)
[2024-07-17 15:44] LABS: Basophils # (A) 0.04 X 10*3/uL (0.00-0.10); Basophils % (A) 0.5 %; Eosinophils # (A) 0.23 X 10*3/uL (0.04-0.35); Eosinophils % (A) 3.1 %; HCT 47.1 % (37.2-46.3); HGB 15.8 g/dL (12.0-15.0); Lymphocytes # (A) 1.91 X 10*3/uL (0.90-5.00); Lymphocytes % (A) 25.7 %; MCH 31.8 pg (27.0-32.0); MCHC 33.5 g/dL (32.0-37.0); MCV 94.8 FL (80.0-97.0); Mean Platelet Volume 10.9 FL (9.5-12.2); Monocytes # (A) 0.51 X 10*3/uL (0.20-1.00); Monocytes % (A) 6.9 %; NRBC Per 100 WBC 0 X 10*3/uL (0.00-0.01); Neutrophils # (A) 4.71 X 10*3/uL (1.80-7.70); Neutrophils % (A) 63.4 %; Platelet Count 136 X 10*3/uL (140-440); RBC 4.97 X 10*6/uL (4.10-5.20); RDW 13.5 % (11.5-14.5); WBC 7.43 X 10*3/uL (4.50-10.00)
== END | disposition home or self-care (01) ==
LOC: LABWHC1 10:32
PROVIDERS: ATTEND Internal Medicine Gastroenterology
DX: K74.60 Unspecified cirrhosis of liver (principal)
CPT/HCPCS: 36415; 80053; 82105; 85025

== ENCOUNTER → 2024-08-25 | Outpatient (CLI) | payer MEDICARE ==
[2024-08-25 15:16] LABS: Chol/HDL Ratio 2.73 Ratio; LDL Cholesterol,Calculated 59.4 mg/dL (0.0-131.0)
[2024-08-25 20:57] LABS: Microalbumin Creatinine Ratio <17 mg/g Cr (0-30); Urine Creatinine 72.6 mg/dL (28.0-217.0)
== END | disposition home or self-care (01) ==
LOC: LABWHC1 08:40
PROVIDERS: ATTEND Internal Medicine
DX: E11.9 Type 2 diabetes mellitus without complications (principal); M85.80 Other specified disorders of bone density and structure, unspecified site
CPT/HCPCS: 36415; 80061; 82043; 82570